=== PATIENT | female | born 1985 | race Caucasian/White ===

== ENCOUNTER 2024-03-16 08:33 | Outpatient (CLI) | payer BC ==
[~2024-03-16] VITALS: Ht 175.3 cm; Wt 108.9 kg
[2024-03-16 09:11] VITALS: PULSE 79; RESP 15; O2SAT 98
[2024-03-16] MEDS: albuterol 2.5 MG/3 ML nebule NEB ONE (09:11)
[2024-03-16 09:33] VITALS: PULSE 96; RESP 16
== END 2024-03-16 23:59 | disposition home or self-care (01) ==
LOC: RT 08:33
PROVIDERS: ATTEND Otolaryngology
DX: J32.0 Chronic maxillary sinusitis (principal); R06.2 Wheezing
CPT/HCPCS: 94060; 94760